=== PATIENT | female | born 1995 | race Caucasian/White ===

== ENCOUNTER 2022-07-08 16:52 | Emergency (ER) | payer BC, SELFPAY ==
[2022-07-08] VITALS (10 sets, daily range): BP systolic 111–130; BP diastolic 65–88; PULSE 99–117; RESP 12–22; TEMP 38; O2SAT 96–98
--- NOTE | 2022-07-08 16:45 | RT.EKG_ITS ---
APPROVED REPORT Exam: Resting ECG Reason for Exam: chest pain Patient Location: E HR:103 bpm ECG Measurements Heart Rate 103 AXIS OK 124 P 81 QRSd 86 QRS 80 QT 321 T 18 QTc 417 Conclusion Sinus tachycardia...rate> 99 Atrial premature complex...SV complex w/ short R-R interval sinus tachycardia, normal axis, normal intervals, non ischemic, baseline artifact
--- NOTE | 2022-07-08 18:15 | DI.RAD_ITS ---
Exam(s) XR PORTABLE CHEST AP EXAM: XR PORTABLE CHEST AP CLINICAL HISTORY: tachycardia, fever TECHNIQUE: 2D digital imaging was performed of the chest. One image was obtained. An AP view was ob tained. COMPARISON: No exams were available for comparison FINDINGS: MEDIASTINUM: Normal. HEART: Normal. PULMONARY VASCULATURE: Normal. LUNGS: Clear. PLEURAL SPACE: No pleural effusion or pneumothorax. BONE:Within normal limits for the patient's age. OTHER FINDINGS:Normal. IMPRESSION: No acute pulmonary findings. DATA REPOSITORY: RADIATION DOSE DELIVERED:
--- NOTE | 2022-07-08 18:23 | W.ED.GENAD ---
Discharge Plan Disposition Patient Disposition: Home Condition: Improving Discharge Details Clinical Impression: Chest pain Primary Care Provider: Unknown,Unknown ED Provider: Jarrett Khan Home Meds and New Rx's Prescriptions: New pantoprazole 40 mg tablet,delayed release (DR/EC) 40 mg PO DAILY 10 Days Qty: 10 0RF Discharge Instructions Instructions: Chest Pain (ED) Additional Instructions: Please return tomorrow morning to have Holter monitor placed by the respiratory therapy department. Please follow-up with cardiology as scheduled. Please return to the emergency department for any worsening symptoms. Discharge Orders Other Ambulatory Orders: Holter Monitor (Routine) Timeframe: 1 Day Facility: [facility] - Location: Respiratory Therapy Ordered By: Jarrett Khan Medical Decision Making 27-year-old female presents with 4 weeks of progressive chest pain shortness of breath, symptoms worse when lying flat or on either of her sides, has noted some exertional dyspnea over the past several days, low-grade fever, tachycardia on arrival sinus tachycardia on EKG, bedside ultrasound showing tachycardia with normal ejection fraction, no pericardial effusion appreciated, symptoms concerning for pericarditis versus myocarditis versus viral syndrome versus pneumonia versus must consider PE. Screening labs imaging analgesia anti-inflammatory fluids close reassessment. If negative labs and imaging will consider adding CTA chest to further characterize cardiopulmonary system. 19: 47 persistent tachycardia, labs largely unremarkable, x-ray clear. Given chest pain shortness of breath lightheadedness in setting of persistent tachycardia must consider PE. Will obtain CTA chest. 21: 50 patient resting comfortably no acute distress. Heart rate as low as 100. Pain-free no shortness of breath. Labs and imaging unremarkable no evidence of PE. Consider pleurisy versus costochondritis versus resolving viral syndrome versus anxiety. However given persistent symptomatology will have patient follow-up with cardiology and will order Holter monitor. Respiratory team unable to place tonight will be able to administer tomorrow Sign Out No HPI General Date/Time Provider Initiated Documentation: 07/08/22 18:03. HPI Narrative: 27-year-old female presents with several weeks of chest pain lightheadedness and shortness of breath, worse with leaning and laying down, denies history of cardiac disease or thromboembolic disease, was on control however switched to an IUD several months ago. Denies leg swelling or pain. Related Data Home Medications Medication Instructions Recorded Confirmed pantoprazole 40 mg tablet,delayed 40 mg PO DAILY 10 days #10 tabs 07/08/22 release Previous Rx's Medication Instructions Recorded pantoprazole 40 mg tablet,delayed 40 mg PO DAILY 10 days #10 tabs 07/08/22 release General Stated Complaint: Chest Pain RULA: 3 Review of Systems Narrative: Review of Systems Constitutional: negative Eyes: negative ENT: negative Cardiovascular: Chest pain Respiratory: Shortness of breath Gastrointestinal: negative : negative Musculoskeletal: negative Skin: negative Neurologic: negative Psych: negative PFSH All Active Problems (Updated 07/08/22 @ 21:52 by Jarrett Khan MD) Chest pain (Acute) Social History Smoking/Tobacco Use Status: Never Smoking risk assessment performed?: Yes Alcohol Intake: former Drug use: Socially Substance use type: marijuana Do you feel safe at home: Yes Do you feel safe in your relationship?: Yes Exam Narrative Exam Narrative: Physical Examination General: alert, awake, cooperative, resting comfortably, no acute distress HEENT: normocephalic, atraumatic; PERRL, EOM intact, conjunctiva normal; no nasal discharge; moist mucous membranes, oral and pharyngeal mucosa normal, tolerating secretions Neck: supple, trachea midline; full ROM Chest: normal to inspection Respiratory: normal respiratory effort, speaking in full sentences, clear to auscultation, no wheezing, rales or rhonchi Cardiac: Tachycardia, regular rhythm, S1S2 intact, no murmurs rubs or gallops GI: abdomen soft, non-tender, non-distended; no palpable mass or hepatosplenomegaly Skin: no lesions, rashes or trauma appreciated Neuro: AAOx3, normal speech, moving all extremities Extremities: No peripheral edema Psych: Appropriate mood and affect Course Vital Signs Vital signs: Vital Signs Temperature 38.0 C H 07/08/22 16:56 Pulse 103 H 07/08/22 16:56 Respiratory Rate 20 07/08/22 16:56 Blood Pressure 121/88 07/08/22 16:56 Pulse Oximetry 98 07/08/22 16:56 Temperature 38.0 C H 07/08/22 16:56 Temperature Source Temporal Artery Scan 07/08/22 16:56 Pulse 103 H 07/08/22 16:56 Respiratory Rate 20 07/08/22 17:20 Respiratory Effort 07/08/22 17:20 Respiratory Depth Normal 07/08/22 17:20 Respiratory Pattern Normal 07/08/22 17:20 Blood Pressure 121/88 07/08/22 16:56 Blood Pressure Position Supine 07/08/22 16:56 Pulse Oximetry 98 07/08/22 16:56 Oxygen Delivery Method Room Air 07/08/22 16:56 Oxygen Flow Rate 0 07/08/22 16:56 Pain Level 6 07/08/22 17:20
[2022-07-08] MEDS: Ketorolac 15 MG/ML VIAL IVP (18:49)
[2022-07-08] MEDS: Acetaminophen 325 MG TAB 650 MG PO (18:49)
[2022-07-08] MEDS: Normal Saline 1,000 ML 1000 ML IV (18:49)
[2022-07-08 18:54] LABS: Abs Immature Grans 0.03 10^3/uL (0.0-0.06); Absolute Basophil Count 0.04 10^3/uL (0.0-0.2); Absolute Lymphocyte Count 1.69 10^3/uL (1.2-3.4); Absolute Monocyte Count 0.48 10^3/uL (0.1-0.8); Absolute Neutrophil Count 8.12 10^3/uL (1.2-6.7); Basophils % 0.4; HCT 39.7 % (36.0-46.0); HGB 13.9 g/dL (11.2-15.7); Immature Grans % 0.3; Lymphocytes % 16.2; MCH 30.9 pg (27.0-33.0); MCV 88 fL (80-95); MPV 9.3 fL (8.0-11.0); Monocytes % 4.6; Neutrophils % 77.5; Platelet Count 299 10^3/uL (130-400); RDW 11.5 % (11.7-14.6); RDW-SD 37.1 fL; WBC 10.46 10^3/uL (4.4-10.8)
--- NOTE | 2022-07-08 19:12 | DI.VRAD_ITS ---
PROCEDURE INFORMATION: Exam: XR Chest Exam date and time: 07/08/2022 6:41 PM Age: 27 years old Clinical indication: Other: Tachycardia, fever; Patient HX: Image done supine per er TECHNIQUE: Imaging protocol: Radiologic exam of the chest. Views: 1 view. COMPARISON: No relevant prior studies available. FINDINGS: Lungs: No pulmonary consolidation is seen. Pleural spaces: No pleural effusion or pneumothorax is demonstrated. Heart/Mediastinum: Heart size is normal. Bones/joints: The visualized bony structures appear grossly intact IMPRESSION: No active disease is seen in the chest. Dictated and Authenticated by: Carson Yi MD. Ordering:JOHN Farias MD
[2022-07-08] MEDS: LORazepam 2 MG/ML VIAL (19:19)
[2022-07-08 19:20] LABS: ALT 24 U/L (14-59); AST 20 U/L (15-37); Albumin 4.4 g/dL (3.4-5.0); Alkaline Phosphatase 60 U/L (46-116); Anion Gap 9.3 mmol/L (3-11); BUN 15 mg/dL (7-18); Bilirubin, Total 0.3 mg/dL (0.2-1.0); CO2 28.7 mmol/L (21.0-32.0); CREATININE 0.8 mg/dL (0.55-1.02); Calcium 8.9 mg/dL (8.5-10.1); Chloride 103 mmol/L (98-107); Glucose 101 mg/dL (74-106); Potassium 3.8 mmol/L (3.5-5.1); Sodium 141 mmol/L (136-145); TSH (W/Ref FT4) 4.19 uIU/mL (0.36-3.74); Total Protein 7.7 g/dL (6.4-8.2); Troponin I < 50 ng/L (<or=60)
[2022-07-08 19:38] LABS: FREE T4 0.97 ng/dL (0.76-1.46)
[2022-07-08 19:42] LABS: COVID-19 PCR Negative (Negative); Influenza A PCR Negative (Negative); Influenza B PCR Negative (Negative); RSV PCR Negative (Negative)
[2022-07-08 19:43] LABS: Source Nasopharynx
[2022-07-08 19:56] LABS: Bilirubin Negative (Negative); Blood Trace-intact (Negative); Clarity Clear (Clear); Glucose Negative (Negative); Ketones Negative (Negative); Leukocyte Esterase Negative (Negative); Nitrite Negative (Negative); Specific Gravity 1.015 (1.005-1.025); Urobilinogen 0.2 EU/dL (Up TO 0.2); pH 6.5 (5-8)
[2022-07-08 20:04] LABS: Bacteria Rare HPF (Negative); C & S Indicated? No; Crystals Negative HPF (Negative); Epithelial Cells Few HPF (Negative); Mucus Negative (Negative); RBC 0-2 HPF (0-2); WBC 0-2 HPF (0-5)
--- NOTE | 2022-07-08 20:59 | DI.CT_ITS ---
Exam(s) CT CHEST PE CTA EXAM: CT CHEST PE CTA CLINICAL HISTORY: tachycardia, sob. TECHNIQUE: Imaging Protocol: Axial CT angiography was performed with multi-slice acquisition and mu lti-planar and/or 3D reconstructions. CONTRAST MATERIAL: Intravenous: Omnipaque 350 contrast volume:55 mL COMPARISON: CR,XR XR PORTABLE CHEST AP from 07/08/2022 FINDINGS: Tracheobronchial tree: Patent where visualized. Pulmonary parenchyma: No consolidation or dominant measurable mass. No architectural distortion. Pulmonary Arteries: No evidence of filling defect to suggest pulmonary emboli. Mediastinum and Charis: No dominant adenopathy or fluid collection. The esophagus is unremarkable. Visualized thyroid gland: Unremarkable. Pleura: No effusion or pneumothorax. Heart: The heart is not dilated. No coronary artery calcifications are seen. No pericardial effusion. There is no evidence of right heart strain. Aorta: Thoracic aorta non-dilated. No evidence of dissection. Upper abdomen: Unremarkable. Soft tissues: Unremarkable. Bones: Within normal limits for the patient's age. IMPRESSION: 1. No evidence of pulmonary embolism, thoracic aortic dissection or aneurysm. 2. No acute pulmonary process. RADIATION DOSE DELIVERED: 219.1mGy.cm Total DLP DATA REPOSITORY: All CT scans at this facility are submitted to the National Radiology Data Registry (NRDR) Dose Index Registry (DIR) with the [employer] [place] [employer] [employer] (ACR). RADIATION OPTIMIZATION: All CT scans at this facility use at least one of these dose optimization te chniques: automated exposure control; mA and/or kV adjustment per patient size (includes targeted exa ms where dose is matched to clinical indication); or iterative reconstruction.
[2022-07-08] MEDS: Normal Saline - Diluent 50 ML VIAL IJ (21:02)
[2022-07-08] MEDS: Omnipaque 350 MG/ML 500 ML BTL-Imaging package IJ (21:03)
--- NOTE | 2022-07-08 21:28 | DI.VRAD_ITS ---
PROCEDURE INFORMATION: Exam: CTA Chest With Contrast Exam date and time: 07/08/2022 8:53 PM Age: 27 years old Clinical indication: Shortness of breath TECHNIQUE: Imaging protocol: Computed tomographic angiography of the chest with contrast. 3D rendering (Not supervised by radiologist): MIP and/or 3D reconstructed images were created by the technologist. Contrast material: OMNI 350; Contrast volume: 55 ml; Contrast route: INTRAVENOUS (IV); COMPARISON: XR PORTABLE CHEST AP 07/08/2022 6:41 PM FINDINGS: Pulmonary arteries: The pulmonary arteries are normal in caliber. No evidence of acute pulmonary embolism. Aorta: The aorta is normal without evidence of aneurysmal dilatation, dissection or occlusive disease. Lungs: There is no evidence of focal pulmonary consolidation. No evidence of pulmonary parenchymal inflammatory changes. There is no evidence of pulmonary masses. Pleural spaces: There is no evidence of pneumothorax. There are no pleural effusions present. Heart: No evidence of reflux of contrast into the inferior vena cava or hepatic veins to suggest right heart strain or pulmonary hypertension. The cardiac structures are normal. No evidence of significant coronary artery atherosclerotic plaque or calcification. The right ventricular to left ventricular ratio is normal measuring approximately 0.8. Lymph nodes: There is no evidence of lymphadenopathy. Bones/joints: The spine, sternum, ribs, and pectoral girdles show no evidence of acute abnormality. Soft tissues: There are no soft tissue masses or fluid collections. The upper abdominal viscera are unremarkable. Other findings: The mediastinal structures are normal. IMPRESSION: 1. No evidence of acute pulmonary embolism. 2. No active cardiopulmonary disease. Dictated and Authenticated by: Boston Perdue MD. Ordering:JOHN Farias MD
[2022-07-08 22:30] LABS: Troponin I < 50 ng/L (<or=60)
[2022-07-08 22:33] LABS: NT-proBNP 53 pg/mL (<300)
--- NOTE | 2022-07-09 09:50 | NUR.NOTE ---
Nursing Note: Accessed pt chart to see if the ambulatory order for a holter monitor was entered.
== END 2022-07-08 22:07 | disposition home or self-care (01) ==
PROVIDERS: Emergency Provider Emergency Medicine; PCP Nurse Practitioner Family
DX: R07.9 Chest pain, unspecified (principal); R06.02 Shortness of breath; R00.0 Tachycardia, unspecified; Z20.822 Contact with and (suspected) exposure to COVID-19
CPT/HCPCS: 71275; 80053; 81025; 87637; 93005; 96361; 96372; 96374; 99285; 71045; 81003; 81015; 83880; 84439; 84443; 84484; 85025; 93010; J1885; J2060

== ENCOUNTER 2022-07-09 11:54 | Outpatient (RCR) | payer BC, SELFPAY ==
--- NOTE | 2022-07-09 12:47 | HOLTER_ITS ---
APPROVED REPORT Conclusion This is a 48-hour Holter monitor Rhythm throughout was sinus with an average heart rate of 80. Minimum was 57, maximum 134 There were very rare isolated ventricular ectopic beats There was no atrial fibrillation, no high-grade AV block, no SVT, no pauses greater than 3 seconds There were no apparent patient symptoms
== END 2022-08-03 23:59 | disposition home or self-care (01) ==
LOC: CARDOPNVT 11:54
PROVIDERS: Visit Provider Emergency Medicine
DX: R07.89 Other chest pain (principal)
CPT/HCPCS: 93246; 93225; 93226

== ENCOUNTER 2022-11-04 15:59 | Outpatient (REF) | payer BC, SELFPAY ==
[2022-11-04 18:26] LABS: Abs Immature Grans 0.01 10^3/uL (0.0-0.06); Absolute Basophil Count 0.06 10^3/uL (0.0-0.2); Absolute Eosinophil Count 0.13 10^3/uL (0.0-0.7); Absolute Lymphocyte Count 1.61 10^3/uL (1.2-3.4); Absolute Neutrophil Count 3.17 10^3/uL (1.2-6.7); Basophils % 1.1; Eosinophils % 2.4; HCT 41.3 % (36.0-46.0); HGB 14.3 g/dL (11.2-15.7); Immature Grans % 0.2; Lymphocytes % 29.9; MCH 30.2 pg (27.0-33.0); MCHC 34.6 % (32.0-36.0); MCV 87 fL (80-95); MPV 9.6 fL (8.0-11.0); Monocytes % 7.4; Platelet Count 330 10^3/uL (130-400); RBC 4.73 10^6/uL (3.93-5.22); RDW 11.5 % (11.7-14.6); RDW-SD 36.7 fL; WBC 5.38 10^3/uL (4.4-10.8)
[2022-11-04 18:33] LABS: Iron 103 ug/dL (50-170); Total Iron Binding Capacity 379 ug/dL (250-450); Transferrin Sat 27 % (15-50)
[2022-11-04 20:52] LABS: ALT 22 U/L (14-59); AST 19 U/L (15-37); Albumin 4.5 g/dL (3.4-5.0); Alkaline Phosphatase 76 U/L (46-116); BUN 12 mg/dL (7-18); Bilirubin, Total 0.4 mg/dL (0.2-1.0); CREATININE 0.9 mg/dL (0.55-1.02); Calcium 9.2 mg/dL (8.5-10.1); Chloride 104 mmol/L (98-107); Estimated GFR 90.98 (mL/min/1.73m2); Folate > 20.0 ng/mL (8.6-20.0); Glucose 102 mg/dL (74-106); Potassium 4.6 mmol/L (3.5-5.1); Sodium 143 mmol/L (136-145); Total Protein 7.6 g/dL (6.4-8.2); Vitamin B12 384 pg/mL (193-986)
[2022-11-04 21:02] LABS: Vitamin D 25 Total 22.3 ng/mL (30-100)
== END 2022-11-04 16:00 | disposition home or self-care (01) ==
LOC: NCHCN 15:59
PROVIDERS: PCP Nurse Practitioner Family; Visit Provider Nurse Practitioner Family
DX: R42 Dizziness and giddiness (principal); R53.83 Other fatigue; E55.9 Vitamin D deficiency, unspecified
CPT/HCPCS: 80053; 82306; 82607; 82746; 83540; 83550; 83735; 85025

== ENCOUNTER 2023-07-29 20:23 | Outpatient (REF) | payer MEDICAID, SELFPAY ==
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
== END 2023-07-29 20:24 | disposition home or self-care (01) ==
LOC: NCHCN 20:23
PROVIDERS: PCP Nurse Practitioner Family; Visit Provider Physician Assistant
DX: N39.0 Urinary tract infection, site not specified (principal)
CPT/HCPCS: 87077; 87086; 87186

== ENCOUNTER 2024-04-29 15:11 | Outpatient (REF) | payer MEDICAID, SELFPAY ==
--- OUTSIDE RECORDS SUMMARY | 2024-04-29 15:17 | XMS_ITS ---
Author Organization [facility] Address [address] [place] [address] Care Team Providers Care Test Engineering Manager Name Role Phone [facility] Primary Care Provider Deidra Vera [phone] REASON FOR VISIT Upcoming appointment/IUD removal Problems No Known Problems Encounters Encounter Location Date Provider Diagnosis [facility] [address] [place] [address] 12/12/2023 Deidra Aly Plan Of Treatment Next Appt Details Provider Name:Aniya Mendoza, 09/24/2024 12:30:00 PM, [address] , [address], [place], [address], Progress Notes * Vickie RODRIGUEZDOB:1995 ( 28 yo F)Acc No.[id number]:12/12/2023 Patient:?LOS Vickie :1995???Age:28 Y???Sex:Female Address:[facility] [address] , [place], [address] * true * Date:? Generated for Printi ng/Amy/eTransmitting on:?04/29/2024 03:17 PM EDT
--- OUTSIDE RECORDS SUMMARY | 2024-04-29 15:17 | XMS_ITS | Encounter Summary ---
Author Organization [facility] Address [address] [place] [address] Care Team Providers Care Rv Technician Name Role Phone Unknown, Provider Primary Care Provider Encounter Details Date Type Department Care Team (Late st Contact Info) Description 12/20/2022 Lab Requisition [facility] - [facility] [address] [place], [place] [id number] Deidra Tobias PA-C [facility] [address] [address] Encounter for screening for human immunodeficiency virus (HIV); Encounter for screening for other viral diseases; Encounter for screening for infections with a predominantly sexual mode of transmission Social History Tobacco Use Types Packs/Day Years Used Date Smoking Tobacco: Never Assessed Sex and Gender Information Value Date Recorded Sex Assigned at Not on file Gender Identity Not on file Sexual Orientation Not on file documented as of this encounter Plan of Treatment Not on file documented as of this encounter Procedures Procedure Name Priority Date/Time Associated Diagnosis Comments SYPHILIS SEROLOGY Routine 12/20/2022 20: 17 EDT Encounter for screening for infections with a predominantly sexual mode of transmission HEPATITIS C AB W REFLEX TO HCV RNA BY PCR Routine 12/20/2022 20:17 EDT Encounter for screening for other viral diseases HIV 1/2 ANTIGEN AND ANTIBODY, 4TH GENERATION Routine 12/20/2022 20:17 EDT Encounter for screening for human immunodeficiency virus (HIV) documented in this encounter Results * SYPHILIS SEROLOGY (12/20/2022 20:17 EDT) Syphilis Serology Negative Negative 12/23/2022 12:42 EDT [facility] Blood VENOUS BLOOD / Unknown 12/20/2022 20:17 EDT 12/20/2022 20:27 EDT Deidra Tobias PA-C IMMUNOLOGY AND SERO LOGY ORDERABLES Performing Organization Address [facility] Co de Phone Number [facility] [address] [place] [address] * HEPATITIS C AB W REFLEX TO HCV RNA BY PCR (12/20/2022 20:17 EDT) Hep C Antibody Negative Negative 12/23/2022 11:01 EDT [facility] Blood VENOUS BLOOD / Unknown 12/20/2022 20:17 EDT 12/20/2022 20:27 EDT Deidra Tobias PA-C CHEMISTRY & BLOOD G ORDERABLES Performing Organization Address [facility] Co de Phone Number [facility] [address] [place] [address] * HIV 1/2 ANTIGEN AND ANTIBODY, 4TH GENERATION (12/20/2022 20:17 EDT) HIV 1 and 2 Antibody/p24 Antigen, 4th Generation Negative Negative 12/22/2022 12:34 EDT [facility] Comment:If acute HIV-1 infec tion is suspected in a high risk patient, submit plasma specimen for HIV-1 RNA quantitation test. Blood VENOUS BLOOD / Unknown 12/20/2022 20:17 EDT 12/20/2022 20:27 EDT Narrative [facility] - 12/22/2022 12:34 EDT Fourth Generation assay performed on the Siemens Farecastaur XPT. Deidra Tobias PA-C IMMUNOLOGY AND SERO LOGY ORDERABLES Performing Organization Address [facility]/ZIP Co de Phone Number [facility] [address] [place] [address] documented in this encounter Visit Diagnoses Diagnosis Encounter for screening for human immunodeficiency virus (HIV) Special screening examination for other specified viral diseases Encounter for screening for other viral diseases Encounter for screening for infections with a predominantly sexual mode of transmission documented in this encounter Care Teams Rv Technician Relationship Specialty Start Date End Date Unknown, Provider, PCP - General 12/02/22 documented as of this encounter
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
--- OUTSIDE RECORDS SUMMARY | 2024-04-29 15:17 | XMS_ITS | Clinical Summary ---
Author Organization [facility] Address [address] [place] [address] Care Team Providers Care Master Ocean Yacht Name Role Phone Unknown, Provider Primary Care Provider Social History Tobacco Use Types Packs/Day Years Used Date Smoking Tobacco: Never Assessed Sex and Gender Information Value Date Recorded Sex Assigned at Not on file Gender Identity Not on file Sexual Orientation Not on file Plan of Treatment Health Maintenance Due Date Last Done Comments Hepatitis B Vaccine (1 of 3 - 19+ 3-dose series) 01/17 COVID-19 Vaccine ( season) 2023 Hepatitis C Screen Completed 12/20/2022 Procedures Procedure Name Priority Date/Time Associated Diagnosis Comments HEPATITIS C AB W REFLEX TO HCV RNA BY PCR Routine 12/20/2022 20:17 EDT Encounter for screening for other viral diseases from Last 3 Months or Most Recently Relevant to Health Maintenance Results * HEPATITIS C AB W REFLEX TO HCV RNA BY PCR (12/20/2022 20:17 EDT) Hep C Antibody Negative Negative 12/23/2022 11:01 EDT [facility] Blood VENOUS BLOOD / Unknown 12/20/2022 20:17 EDT 12/20/2022 20:27 EDT Deidra Tobias PA-C CHEMISTRY & BLOOD G ORDERABLES [facility] [address] [place] [address] from Last 3 Months or Most Recently Relevant to Health Maintenance Care Teams Master Ocean Yacht Relationship Specialty Start Date End Date Unknown, Provider, PCP - General 12/02/22
--- OUTSIDE RECORDS SUMMARY | 2024-04-29 15:17 | XMS_ITS | Referral Summary ---
Author Organization [facility] Address [address] [place] [address] Care Team Providers Care Windows Server Specialist Name Role Phone Unknown, Provider Primary Care Provider Social History Tobacco Use Types Packs/Day Years Used Date Smoking Tobacco: Never Assessed Sex and Gender Information Value Date Recorded Sex Assigned at Not on file Gender Identity Not on file Sexual Orientation Not on file Plan of Treatment Not on file Procedures Procedure Name Priority Date/Time Associated Diagnosis Comments HEPATITIS C AB W REFLEX TO HCV RNA BY PCR Routine 12/20/2022 20:17 EDT Encounter for screening for other viral diseases from Last 3 Months or Most Recently Relevant to Health Maintenance Results * HEPATITIS C AB W REFLEX TO HCV RNA BY PCR (12/20/2022 20:17 EDT) Hep C Antibody Negative Negative 12/23/2022 11:01 EDT [facility] Blood VENOUS BLOOD / Unknown 12/20/2022 20:17 EDT 12/20/2022 20:27 EDT Deidra Tobias PA-C CHEMISTRY & BLOOD G ORDERABLES [facility] [address] [place] [address] from Last 3 Months or Most Recently Relevant to Health Maintenance Care Teams Windows Server Specialist Relationship Specialty Start Date End Date Unknown, Provider, PCP - General 12/02/22
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
[2024-04-29 21:50] LABS: COVID-19 PCR Negative (Negative); Influenza A PCR Negative (Negative); Influenza B PCR Negative (Negative); RSV PCR Negative (Negative)
[2024-04-29 22:01] LABS: Source Nasopharynx
== END 2024-04-29 15:12 | disposition home or self-care (01) ==
LOC: LBN 15:11
PROVIDERS: Visit Provider Physician Assistant Medical
DX: J02.9 Acute pharyngitis, unspecified (principal)
CPT/HCPCS: 87637; 87070

== ENCOUNTER 2024-07-20 14:51 | Outpatient (REF) | payer MEDICAID, SELFPAY ==
--- OUTSIDE RECORDS SUMMARY | 2024-07-20 14:54 | XMS_ITS | Referral Summary ---
Author Organization [facility] Address [address] [place] [address] Care Team Providers Care Stitchdowns Toe Former Name Role Phone Unknown, Provider Primary Care Provider Unava ilable Social History Tobacco Use Types Packs/Day Years Used Date Smoking Tobacco: Never Assessed Comments Unknown Sex and Gender Information Value Date Recorded Sex Assigned at Not on file Legal Sex Female 13:55 EDT Gender Identity Not on file Sexual Orientation [...] C Antibody Negative Negative 12/23/2022 11:01 EDT [facility] Blood VENOUS BLOOD / Unknown 12/20/2022 20:17 EDT 12/20/2022 20:27 EDT us Deidra Tobias PA-C CHEMISTRY & BLOOD GAS ORDER BETHANIE Final Result [facility] [address] [place] [address] from Last 3 Months or Most Recently Relevant to Health Maintenance Insurance [employer] OOS Care Teams Stitchdowns Toe Former Relationship Specialty Start Date End Date Unknown, Provider, PCP - General 12/02/22
--- OUTSIDE RECORDS SUMMARY | 2024-07-20 14:54 | XMS_ITS ---
Author Organization [facility] Address [facility] [address] [place] [address] Care Team Providers Care Nursing Home Assistant Name Role Phone [facility] Primary Care Provider Deidra Vera [phone] REASON FOR VISIT Upcoming appointment/IUD removal Problems No Known Problems Encounters Encounter Location Date Provider Diagnosis [facility] [address] [place] [address] 12/12/2023 Deidra Aly Plan Of Treatment No Information Progress Notes * Vickie RODRIGUEZDOB:1995 ( 28 yo F)Acc No.[id number]:12/12/2023 Patient:?Sang RODRIGUEZyssa :1995???Age:28 Y???Sex:Female Address:[address] [place], [place] [address], [place], [address] * true * Date:? Generated for Messi franco/Amy/eTransmitting on:?07/20/2024 02:54 PM EST
--- OUTSIDE RECORDS SUMMARY | 2024-07-20 14:54 | XMS_ITS | Clinical Summary ---
Author Organization [facility] Address [address] [place] [address] Care Team Providers Care Jewel Sorter Name Role Phone Unknown, Provider Primary Care [...] 3-dose series) 01/17 COVID-19 Vaccine ( season) 2024 Hepatitis C Screen Completed 12/20/2022 Procedures Procedure [...] C Antibody Negative Negative 12/23/2022 11:01 EDT [facility] Blood VENOUS BLOOD / Unknown 12/20/2022 20:17 EDT 12/20/2022 20:27 EDT us Deidra Tobias PA-C CHEMISTRY & BLOOD GAS ORDER BETHANIE Final Result [facility] [address] [place] [address] from Last 3 Months or Most Recently Relevant to Health Maintenance Insurance [facility] O[facility] Care Teams Jewel Sorter Relationship Specialty Start Date End Date Unknown, Provider, PCP - General 12/02/22
--- OUTSIDE RECORDS SUMMARY | 2024-07-20 14:54 | XMS_ITS ---
Author Organization [facility] Address [address] [place] [address], [address] [place] [address] Care Team Providers Care One Piece Expansion Maker Hand Name Role Phone [facility] Primary Care Provider Deidra Vera [phone] REASON FOR VISIT r/s TVUS Problems No Known Problems Encounters Encounter Location Date Provider Diagnosis [facility] [address] [place] [address], [address] [place] [address] 07/16/2024 Deidra Aly Plan Of Treatment No Information Progress Notes * Vickie RODRIGUEZ MDOB:1995 (29 yo F)Acc No.[id number]:07/16/2024 Patient:?Vickie RODRIGUEZ :1995???Age:29 Y???Sex:Female Address:[address] [place] [address], [place], [address] * true * Date:? Generated for Messi franco/Amy/eTransmitting on:?07/20/2024 02:53 PM EST
--- OUTSIDE RECORDS SUMMARY | 2024-07-20 14:54 | XMS_ITS | Patient Health Record ---
Author Organization [facility] Address [address], [address] [place] [address] Care Team Providers Care Varnisher Apprentice Name Role Phone [facility] Primary Care Provider Unavailable Deidra Aly Unavailable [phone] Allergies No Known Allergies Results Component Value Reference Range Notes THINPREP TIS PAP (REFL) HPV mRNA E6/E7 Reviewed date:01/06/2024 09:51:06 AM Interpretation:NILM Performing Lab:NL1, [facility] [address] Jina Pizano M.D. Notes/Report: 0 CLINICAL INFORMATION: None g iven LMP: N/A IUD PREV. PAP: NILM 2022 PREV. BX: H/O ABNORMAL PA PS SOURCE: Cervix, Endocer vix STATEMENT OF ADEQUACY: Satisfactory for evaluation. Endocervical/transformation zone component present. INTERPRETATION/RESULT: Cytology Results: Negative for intraepithelial lesion or malignancy. COMMENT: This Pap test has been evaluated with computer assisted technology. LANDSCAPE CREW LEADER: LILY THOMPSON(ASCP) CT screening location: [place] [address] COMMENT EXPLANATORY NOTE: The Pap is a [...] Vital Signs Blood pressure diastolic 62 01/02/2024 Weight-kg 50.8 kg 01/02/2024 Height 63.5 in 01/02/2024 Blood pressure systolic 100 01/02/2024 Weight 112 lbs 01/02/2024 BMI 19.53 kg/m2 01/02/2024 Encounters Encounter Location Date Provider Diagnosis [facility] [address] [place] [address], [address] [place] [address] 01/02/2024 Deidra Aly Encounter for screening for malignant neoplasm of cervix Z12.4 ; Encounter for gynecological examination (general) (routine) without abnormal findings Z01.419 and Encounter for other general counseling and advice on contraception Z30.09 [facility] [address] [place] [address], [address] [place] [address] 07/16/2024 Deidra Aly [facility] [address] [place] [address], [address] [place] [address] 12/12/2023 Deidra Aly Assessments Encounter Date Diagnosis (ICD Code) Assessment Notes Treatment Notes Treatment Clinical Notes Section Notes 01/02/2024 Encounter for screening for malignant neoplasm of cervix (ICD-10 - Z12.4) await results 01/02/2024 Encounter for gynecological examination (general) (routine) without abnormal findings (ICD-10 - Z01.419) Continue healthy habits. Discussed health screening recommendations. Return for yearly Sports Broadcaster preventive exam and as needed for problems. Additional health care maintenance with primary care provider. Pap collected today due to h/o abnormal and no records. 01/02/2024 Encounter for other general counseling and advice on contraception (ICD-10 - Z30.09) pain with IUD removal/replacem ent and is VERY anxious about getting another [...] very pleasant and supportive. Plan Of Treatment No Information Insurance Providers Payer Name Payer Address Payer Phone Subscriber Number Group Number Insured Name Patient Relationship to Insured Coverage Start Date Coverage End Date [place]ICA[place] [address] [place] [address] [id number] Vickie Rodriguez Self - patient is the insured Medical (General) History Medical History History ICD Code G0 HPV Vaccinated Acne h/o abnormal pap depression/anxiety/PTSD Surgical History Surgery Date(Month/Year) wisdom teeth 2019
--- OUTSIDE RECORDS SUMMARY | 2024-07-20 14:54 | XMS_ITS | Encounter Summary ---
Author Organization [facility] Address [address] [place] [address] Care Team Providers Care Target Aircraft Controller Name Role Phone Unknown, Provider Primary Care Provider Unava ilable Encounter Details Date Type Department Care Team (Late st Contact Info) Description 12/20/2022 Lab Requisition [facility] Pathology & Laboratory Medicine - [facility] [address] [place] [address] Deidra Tobias PA-C [facility] [address] Encounter for screening for human [...] Syphilis Serology Negative Negative 12/23/2022 12:[address] [facility] Blood VENOUS BLOOD / Unknown 12/20/2022 20:17 EDT 12/20/2022 20:27 EDT us Deidra CantuC IMMUNOLOGY AND SEROLOGY ORD ERABLES Final Result [facility] [address] [place] [address] * HEPATITIS C AB W REFLEX TO HCV RNA BY PCR (12/20/2022 20:17 EDT) Hep C Antibody Negative Negative 12/23/2022 11:[address] [facility] Blood VENOUS BLOOD / Unknown 12/20/2022 20:17 EDT 12/20/2022 20:27 EDT us Deidra Tobias PA-C CHEMISTRY & BLOOD GAS ORDER BETHANIE Final Result Performing Organization Address [facility] Co de Phone Number [facility] [address] [place] [address] * HIV 1/2 ANTIGEN AND ANTIBODY, 4TH GENERATION (12/20/2022 20:17 EDT) HIV 1 and 2 Antibody/p24 Antigen, 4th Generation Negative Negative 12/22/2022 12:[address] [facility] Comment:If acute HIV-1 infec tion is suspected in a high risk patient, submit plasma specimen for HIV-1 RNA quantitation test. Blood VENOUS BLOOD / Unknown 12/20/2022 20:17 EDT 12/20/2022 20:27 EDT Narrative [facility] - 12/22/2022 12:34 EDT Fourth Generation assay performed on the Siemens [employer] XPT. us Deidra Tobias PA-C IMMUNOLOGY AND SEROLOGY ORD ERABLES Final Result [facility] [address] [place] [address] documented in this encounter Visit Diagnoses Diagnosis Encounter for screening for human immunodeficiency virus (HIV) Special screening examination for other specified viral diseases Encounter for screening for other viral diseases Encounter for screening for infections with a predominantly sexual mode of transmission documented in this encounter Care Teams Target Aircraft Controller Relationship Specialty Start Date End Date Unknown, Provider, PCP - General 12/02/22 documented as of this encounter
--- OUTSIDE RECORDS SUMMARY | 2024-07-20 14:54 | XMS_ITS ---
Author Organization [facility] Address [address] [place] [address] Care Team Providers Care Agronomy Location Manager Name Role Phone [facility] Primary Care Provider Unavailable Deidra Aly Unavailable [phone] Allergies No Known Allergies Results Component Value Reference Range Notes THINPREP TIS PAP (REFL) HPV mRNA E6/E7 Reviewed date:01/06/2024 09:51:06 AM Interpretation:NILM Performing Lab:[facility], [facility] [id number] [place], [place] [id number] Jina Pizano M.D. Notes/Report: 0 CLINICAL INFORMATION: None g iven LMP: N/A IUD PREV. PAP: NILM 2022 PREV. BX: H/O ABNORMAL PA PS SOURCE: Cervix, Endocer vix STATEMENT OF ADEQUACY: Satisfactory for evaluation. Endocervical/transformation zone component present. INTERPRETATION/RESULT: Cytology Results: Negative for intraepithelial lesion or malignancy. COMMENT: This Pap test has been evaluated with computer assisted technology. ONLINE MARKETING DIRECTOR: LILY THOMPSON(ASCP) CT screening location: [place] [address] COMMENT EXPLANATORY NOTE: The Pap is a [...] 01/02/20 24 Blood pressure diastolic 62 024 Weight-kg 50.8 kg 01/02/2024 Encounters Encounter Location Date Provider Diagnosis [facility] [address] [facility], [address] [place] [address] 01/02/2024 Deidra Refugio Sullivan Encounter for screening for malignant neoplasm of [...] Discussed health screening recommendations. Return for yearly Dermatology Physician Assistant preventive exam and as needed for [...] healt h screening recommendations. Return for yearly Dermatology Physician Assistant preventive exam and as needed for [...] Follow Up: 1 Year, Reason: a e Progress Notes * Vickie RODRIGUEZ MDOB:1995 (28 yo F)Acc No.[id number]:01/02/2024 Progress notes Patient:?Vickie RODRIGUEZ Provider:?ANA MARIA Richards :1995???Age:28 Y???Sex:Female D ate:01/02/2024 Address:[address] [place], [place] [id number] Pcp:[facility] Subjective: * Chief Complaints: * ???AE * HPI: ???PEDIATRIC ONCOLOGY NURSE:? Vickie is a 28 y.o. G0 patient who presents for a preventative PEDIATRIC ONCOLOGY NURSE exam Last seen 12/20/2022 by me for a preventative PEDIATRIC ONCOLOGY NURSE exam and to discuss an IUD removal/replacement? [...] of abnormal paps. * ROS:?Overall Review of Systems:?no?Cardiology.?no?Dermatology.?Dermatology Physician Assistant?yes,see HPI.?no?Breast.?no?Hematology.?no?Allergies.?no?Endocrinology.?no?Gastroenterolo gy.?no?General.?no?Urologic.?no?HEENT.?no?Musculoskeletal.?no?Neurology.?no?Psyc hiatry.?no?Respiratory.? * Medical History:? * Dermatology Physician Assistant History:?See HPI and PMH /PSH?..? * OB [...] and reconciled with the patientTaking Mirena , Notes to Pharmacist: placed 2017Taking Spironolactone 100 MG Tablet 1 tablet Orally Once a day Medication List reviewed and reconciled with the patient * Allergies:?N.K.D.A.no[Allerg ies Verified] Objective: * Vitals:?Ht: 63.5, Wt: 112, B WA: 19.53, BP sittin/62, Ht-cm: 161.29, Wt-k.8. * Examination: ???PEDIATRIC ONCOLOGY NURSE: ?GENERAL:?Well-developed, well-nourished, no acute distress, alert and [...] * Provider:?ANA MARIA Richards Date:?12/04 Generated for [employer] salvador/Amy/eTransmitting on:?07/20/2024 02:53 PM EST History and Physical Notes * Examination Category Sub-Category Detail Notes Category Not es PEDIATRIC ONCOLOGY NURSE CERVIX: posterior; no ce rvical movement tenderness; [...]
[2024-07-20 20:11] LABS: Abs Immature Grans 0.01 10^3/uL (0.0-0.06); Absolute Basophil Count 0.06 10^3/uL (0.0-0.2); Absolute Eosinophil Count 0.23 10^3/uL (0.0-0.7); Absolute Lymphocyte Count 2.01 10^3/uL (1.2-3.4); Absolute Neutrophil Count 2.89 10^3/uL (1.2-6.7); Basophils % 1.1 %; Eosinophils % 4.2 %; Immature Grans % 0.2 %; Lymphocytes % 36.5 %; MCH 30.5 pg (27.0-33.0); MCHC 34.1 % (32.0-36.0); MCV 89 fL (80-95); MPV 9.9 fL (8.0-11.0); Monocytes % 5.5 %; Neutrophils % 52.5 %; Platelet Count 353 10^3/uL (130-400); RBC 4.59 10^6/uL (3.93-5.22); RDW 11.4 % (11.7-14.6); RDW-SD 36.5 fL
[2024-07-20 21:09] LABS: ALT 14 U/L (14-59); AST 16 U/L (15-37); Albumin 4.5 g/dL (3.4-5.0); Alkaline Phosphatase 78 U/L (46-116); Anion Gap 6.6 mmol/L (3-11); BUN 11 mg/dL (7-18); CO2 30.4 mmol/L (21.0-32.0); CREATININE 0.9 mg/dL (0.55-1.02); Calcium 9.6 mg/dL (8.5-10.1); Chloride 103 mmol/L (98-107); Estimated GFR 89.86 (mL/min/1.73m2); Glucose 86 mg/dL (74-106); Sodium 140 mmol/L (136-145); TSH (W/Ref FT4) 1.31 uIU/mL (0.36-3.74); Total Protein 7.8 g/dL (6.4-8.2); Vitamin D 25 Total 41.6 ng/mL (30-100)
== END 2024-07-20 14:52 | disposition home or self-care (01) ==
LOC: NCHCN 14:51
PROVIDERS: Visit Provider Nurse Practitioner Family
DX: L70.9 Acne, unspecified (principal); F41.8 Other specified anxiety disorders
CPT/HCPCS: 80053; 82306; 84443; 85025

== ENCOUNTER 2024-11-24 16:02 | Outpatient (REF) | payer MEDICAID, SELFPAY ==
[2024-11-24 20:56] LABS: HCT 41.3 % (36.0-46.0); HGB 14.1 g/dL (11.2-15.7); MCH 30.8 pg (27.0-33.0); MCHC 34.1 % (32.0-36.0); MCV 90 fL (80-95); MPV 10.5 fL (8.0-11.0); Platelet Count 300 10^3/uL (130-400); RBC 4.58 10^6/uL (3.93-5.22); RDW 11.8 % (11.7-14.6); RDW-SD 38.7 fL; WBC 7.99 10^3/uL (4.4-10.8)
[2024-11-24 22:21] LABS: ALT 20 U/L (14-59); AST 17 U/L (15-37); Albumin 4.3 g/dL (3.4-5.0); Alkaline Phosphatase 68 U/L (46-116); BUN 13 mg/dL (7-18); Bilirubin, Total 0.4 mg/dL (0.2-1.0); CREATININE 0.9 mg/dL (0.55-1.02); Calcium 9.4 mg/dL (8.5-10.1); Chloride 103 mmol/L (98-107); Estimated GFR 89.86 (mL/min/1.73m2); Glucose 93 mg/dL (74-106); Potassium 4.3 mmol/L (3.5-5.1); Sodium 141 mmol/L (136-145); TSH (W/Ref FT4) 1.32 uIU/mL (0.36-3.74); Total Protein 7.4 g/dL (6.4-8.2)
[2024-12-02 13:11] LABS: 25-Hydroxy D Total 37 ng/mL; 25-Hydroxy D2 9.3 ng/mL; 25-Hydroxy D3 28 ng/mL
== END 2024-11-24 16:03 | disposition home or self-care (01) ==
LOC: NCHCN 16:02
PROVIDERS: Visit Provider Nurse Practitioner Family
DX: F41.9 Anxiety disorder, unspecified (principal); R53.83 Other fatigue; R07.9 Chest pain, unspecified
CPT/HCPCS: 80053; 82306; 85027; 82652; 84443; 84484